=== PATIENT | male | born 1955 | race Caucasian/White ===

== ENCOUNTER 2019-02-26 09:46 | Outpatient (CLI) | payer OTHER ==
--- NOTE | 2019-02-26 11:10 | MRI ---
EXAM: MRI lumbar spine without contrast HISTORY: Low back pain that radiates down the right leg with numbness and tingling for 3 1/2 weeks COMPARISON: None TECHNIQUE: Multiple planar multisequence MR images were obtained of the lumbar spine without contrast . FINDINGS: The vertebral bodies and intervertebral discs demonstrate normal height and alignment without fractur e or subluxation. The prevertebral and paraspinal soft tissues are unremarkable. No marrow signal abnormality is present. The conus medullaris terminates normally at T12/L1. T12/L1: No significant posterior bulge or protrusion. No posterior facet arthrosis. No central jacob l stenosis. No neural foraminal stenosis L1/2: No significant posterior bulge or protrusion. No posterior facet arthrosis. No central canal stenosis. No neural foraminal stenosis L2/3: No significant posterior bulge or protrusion. No posterior facet arthrosis. No central canal stenosis. No neural foraminal stenosis L3/4: A minimal generalized concentric disc bulge is seen. No posterior facet arthrosis. No central canal stenosis. No neural foraminal stenosis L4/5: A small generalized concentric disc bulge is seen. No posterior facet arthrosis. Mild central canal stenosis. Mild left neural foraminal stenosis L5/S1: A small central protrusion is seen. There is a bilobed extruded disc fragment in the right sub articular region measuring 1.7 x 1.9 x 0.6 cm in size. This impresses upon the right S1 nerve root No posterior facet arthrosis. Moderate central canal stenosis. No neural foraminal stenosis IMPRESSION: Degenerative changes as above. There is an extruded disc fragment at L5/S1 impressing upon the right S1 nerve root.
== END 2019-02-26 09:47 | disposition home or self-care (01) ==
LOC: SCSMRI 09:46
PROVIDERS: ATTEND Family Medicine
DX: M47.26 Other spondylosis with radiculopathy, lumbar region (principal); M51.27 Other intervertebral disc displacement, lumbosacral region
CPT/HCPCS: 72148

== ENCOUNTER 2021-02-18 14:29 | Outpatient (CLI) | payer MEDICARE | END 2021-02-18 14:30 | disposition home or self-care (01) | LOC: LABBT 14:29 | PROVIDERS: ATTEND Neurological Surgery | DX: Z01.818 Encounter for other preprocedural examination (principal); M51.16 Intervertebral disc disorders with radiculopathy, lumbar region; M48.061 Spinal stenosis, lumbar region without neurogenic claudication | CPT/HCPCS: 72148 ==

== ENCOUNTER 2021-02-23 06:23 | Day surgery (SDC) | payer MEDICARE ==
[2021-02-22 14:02] VITALS: BMI 24.3
[2021-02-23] MEDS ORDERED: Bupivacaine PF 0.5% 30 ML VIAL ONE (06:46)
[2021-02-23] MEDS ORDERED: Thrombin 5000 UNITS/5 ML VIAL ONE (06:46)
[2021-02-23] MEDS ORDERED: EPINEPHrine 1 MG/ML AMP ONE (06:46)
[2021-02-23] MEDS ORDERED: Fentanyl 250 MCG/5 ML VIAL ONE (06:50)
[2021-02-23] MEDS ORDERED: SUGAMMADEX SODIUM 500 MG/5 ML VIAL ONE (06:50)
[2021-02-23] MEDS ORDERED: Midazolam HCl 2 mg/2 ml Vial ONE (06:50)
[2021-02-23] MEDS ORDERED: Morphine 10 MG/ML VIAL ONE (06:50)
[2021-02-23] MEDS ORDERED: Lidocaine 1% PF 5 ML VIAL ONE (08:27)
[2021-02-23] MEDS ORDERED: Dexamethasone 20 MG/5 ML VIAL ONE (08:27)
[2021-02-23] MEDS ORDERED: Ondansetron PF 4 MG/2 ML Vial ONE (08:27)
[2021-02-23] MEDS ORDERED: Rocuronium Bromide 10 MG/ML (10ML VIAL) ONE (08:27)
[2021-02-23] MEDS ORDERED: PROPOFOL 200 MG/20 ML VIAL ONE (08:27)
[2021-02-23] MEDS ORDERED: Tamsulosin HCl 0.4 MG CAP ONE (09:42)
[2021-02-23] MEDS ORDERED: Fentanyl 100 MCG/2 ML VIAL ONE ×2 (09:56→10:27)
[2021-02-23] MEDS ORDERED: HYDROcodone/Acetaminophen 5/325 mg Tablet ONE (12:24)
== END 2021-02-23 13:40 | disposition home or self-care (01) ==
LOC: SDC 06:23
PROVIDERS: ATTEND Neurological Surgery
PROC: 01NB0ZZ Release Lumbar Nerve, Open Approach (ICD-10-PCS; principal; 2021-02-23)
DX: M48.061 Spinal stenosis, lumbar region without neurogenic claudication (principal); M51.16 Intervertebral disc disorders with radiculopathy, lumbar region
CPT/HCPCS: 76000; J0171; J0690; J1100; J2250; J2270; J2405; J2704; J3010; S0020